=== PATIENT | female | born 1945 | race Caucasian/White ===

== ENCOUNTER → 2017-08-18 | Outpatient (CLI) | payer OTHER | LOC: BMCIMAGING 11:37 | PROVIDERS: ATTEND Family Medicine | DX: S22.32XA Fracture of one rib, left side, initial encounter for closed fracture (principal); K59.00 Constipation, unspecified; C50.919 Malignant neoplasm of unspecified site of unspecified female breast | CPT/HCPCS: 71101-PO ==

== ENCOUNTER → 2017-09-04 | Outpatient (CLI) | payer OTHER | LOC: FIMAGING 13:36 | PROVIDERS: ATTEND Physician Assistant | DX: Z13.820 Encounter for screening for osteoporosis (principal); M81.0 Age-related osteoporosis without current pathological fracture; Z78.0 Asymptomatic menopausal state; Z85.3 Personal history of malignant neoplasm of breast ==

== ENCOUNTER 2018-01-28 10:04 | Day surgery (SDC) | payer OTHER ==
--- NOTE | 2018-01-26 16:33 | GHP ---
[f rep st] PREOP HISTORY AND PHYSICAL DATE OF ADMISSION: 01/28/2018 DATE OF SURGERY: 01/28/2018. HISTORY OF PRESENT ILLNESS: The patient is a very pleasant 72-year-old woman who has a complicated history of breast cancer. She developed a left breast cancer in 2010 and then a subsequent right breast cancer as a 2nd primary in 2014. She underwent bilateral mastectomy [place] [address] Radha Castellanos with sentinel lymph node biopsy. At the time of surgery, she was found to have 2/6 positive right axillary lymph nodes. She developed skin lesions over her bilateral breasts. She is receiving chemotherapy. Her oncologist is Dr. Mary Noriega. She will require a port for chemotherapy. PAST MEDICAL HISTORY: Left breast cancer, right breast cancer, arthritis, depression, osteoporosis. PAST SURGICAL HISTORY: Bilateral mastectomy, left lumpectomy, carpal tunnel surgery, tubal ligation, wisdom teeth extraction. ALLERGIES: Augmentin, nitrofurantoin, sulfa. SOCIAL HISTORY: She is . She is retired. She has a daughter who is very involved in her care. She denies tobacco, alcohol, or recreational drug use. FAMILY HISTORY: Mother with diabetes. Maternal uncle with melanoma. Maternal cousin with leukemia. REVIEW OF SYSTEMS: 10-point review of systems is negative aside from the HPI. PHYSICAL EXAM: GENERAL: Pleasant, well-developed, well-nourished woman in no acute distress, accompanied by daughter. HEENT: Alopecia. Normocephalic, atraumatic. No hearing deficits. Pupils equal and round. No scleral icterus. Mucous membranes moist. RESPIRATORY: Clear to auscultation bilaterally. No increased work of breathing. CARDIOVASCULAR: Regular rate and rhythm. No peripheral edema. SKIN: She has erythematous nodules over her bilateral chest. There are several areas in the right upper outer chest of a larger, more dominant nodular lesion approximately 1 cm. BREASTS: Status post mastectomy with bilateral breast implants. LYMPHATIC: No cervical or supraclavicular axillary lymphadenopathy. Palpable left axillary lymph node. No right axillary adenopathy. PSYCHIATRIC: Mood and affect normal. NEUROLOGIC : Grossly intact. IMPRESSION AND PLAN: A 72-year-old woman with bilateral breast cancer, metastatic, now with metastases to her skin. She will require a port for chemotherapy. We discussed risks of surgery including, but not limited to, heart attack, stroke, blood clots, or . We discussed risk of infection, bleeding, pneumothorax, or need for device removal. If the device becomes infected, it will need to be removed. I suspect that the port will be placed on the left side as she has healthy tissue in the left upper outer chest. We will also perform an excisional skin biopsy of the skin lesion of the right upper outer chest to be sent for Foundation testing and chemosensitivity. I saw and examined the patient. Kate Carey PA-C acted as scribe /[id number]/MODL MTDD
[2018-01-28] MEDS ORDERED: ceFAZolin 2 GM/SWFI 2 GM/20 ML SYR IVP ONE (10:25)
[2018-01-28] MEDS ORDERED: LR 1,000 ML IV ONE (10:26)
--- NOTE | 2018-01-28 11:21 | PDANEPAE ---
ANE History of Present Illness port placement chest bx ANE Past Medical History - Cardiovascular History Hx Hypertension: No Hx Arrhythmias: No Hx Chest Pain: No Hx Coronary Artery / Peripheral Vascular Disease: No Hx CHF / Valvular Disease: No Hx Palpitations: No Cardiovascular History Comment: hyperlipidemia - Pulmonary History Hx COPD: No Hx Asthma/Reactive Airway Disease: No Hx Recent Upper Respiratory Infection: No Hx Oxygen in Use at Home: No Hx Sleep Apnea: No Sleep Apnea Screening Result - Last Documented: Negative Pulmonary History Comment: PNEUMONIA - Neurologic History Hx Cerebrovascular Accident: No Hx Seizures: No Hx Dementia: No - Endocrine History Hx Diabetes: No - Renal History Hx Renal Disorders: No - Liver History Hx Hepatic Disorders: No - Neurological & Psychiatric Hx Hx Neurological and Psychiatric Disorders: No Neurological / Psychiatric History Comment: depression - Cancer History Hx Cancer: Yes Cancer History Comment: breast cancer in 2014. current mets - Congenital Disorder History Hx Congenital Disorders: No - GI History Hx Gastrointestinal Disorders: Yes Gastrointestinal History Comment: constipation - Other Health History Other Health History: wears glasses. currently only wearing left hearing aid d/ t hearing issue. osteoporosis to back - Chronic Pain History Chronic Pain: Yes (back pain) - Surgical History Prior Surgeries: 02/01/15 bilateral mastectomy with reconstruction with [facility]. LT BREAST LUMPECTOMY. LT BREAST BX. TUBAL LIGATION. ANU CARPAL TUNNEL ANE Review of Systems Review of systems is: negative Review of Systems: - Exercise capacity METS (RN): 4 METS ANE Patient History - Allergies Allergies/Adverse Reactions: amoxicillin trihydrate [From Augmentin] Allergy (Verified 01/26/18 16:45) Hives nitrofurantoin [From Macrobid] Allergy (Verified 01/26/18 16:45) Hives nitrofurantoin macrocrystalline [From Macrobid] Allergy (Verified 01/26/18 16:45 ) Hives potassium clavula *RETIRED-07/04/12 [From Augmentin] Allergy (Verified 01/26/18 16:45) Hives sulfamethoxazole [From Bactrim] Allergy (Verified 01/26/18 16:45) Hives trimethoprim [From Bactrim] Allergy (Verified 01/26/18 16:45) Hives - Home Medications Home medications: home medication list seen and reviewed Home Medications: Acyclovir [Zovirax 400 mg (*)] TID 01/31/15 [Last Taken 01/28/18 08:30] Herbals/Supplements -Info Only 01/31/15 [Last Taken 01/26/18] VENLAFAXINE HCL 150 mg PO DAILY 01/26/18 [Last Taken 01/28/18 08:30] - NPO status NPO Since - Liquids (Date): 01/28/18 NPO Since - Liquids (Time): 08:30 NPO Since - Solids (Date): 01/27/18 NPO Since - Solids (Time): 22:00 - Anes Hx Anes Hx: no prior problems - Smoking Hx Smoking Status: Never smoked - Family Anes Hx Family Anes Hx: none Family Hx Anesthesia Complications: none ANE Labs/Vital Signs - Vital Signs Blood Pressure: 119/69 Heart Rate: 70 Respiratory Rate: 16 O2 Sat (%): 97 Height: 147 cm Weight: 44.452 kg ANE Physical Exam - Airway Neck exam: FROM Mallampati Score: Class 2 Mouth exam: normal dental/mouth exam - Pulmonary Pulmonary: no respiratory distress - Cardiovascular Cardiovascular: regular rate and rhythym - ASA Status ASA Status: II ANE Anesthesia Plan Total IV Anesthesia: Yes
--- NOTE | 2018-01-28 11:32 | PDHPUP ---
History & Physical Update H&P update statement: This history and physical update is based on an assessment of the patient which was completed after admission or registration (within 24 hours), but prior to the surgery/procedure. H&P update: H&P reviewed & patient examined, no change in patient's condition since H&P completed
[2018-01-28] MEDS ORDERED: BUPIVACAINE 0.5% 30 ML SDV ONE (11:48)
[2018-01-28] MEDS ORDERED: LIDOCAINE 1% 300 MG/30 ML SDV ONE (11:52)
[2018-01-28] MEDS ORDERED: PROPOFOL/EMULSION 500 MG/50 ML BOTTLE IV ONE (12:01)
[2018-01-28] MEDS ORDERED: LIDOCAINE 2% 100 MG/5 ML SYR ONE (12:01)
[2018-01-28] MEDS ORDERED: ceFAZolin 1 GM VIAL ONE ×2 (12:15)
[2018-01-28] MEDS ORDERED: ONDANSETRON 4 MG/2 ML VIAL IVP PRN (12:39)
[2018-01-28] MEDS ORDERED: NALOXONE HCL 0.4 MG/ML INJ IVP PRN (12:39)
[2018-01-28] MEDS ORDERED: HYDROmorphONE/DILAUDID 1 MG/ML INJ IVP PRN (12:39)
[2018-01-28] MEDS ORDERED: oxyCODONE IR 5 MG TAB PO PRN (12:39)
[2018-01-28] MEDS ORDERED: ACETAMINOPHEN 500 MG TAB PO PRN (12:39)
[2018-01-28] MEDS ORDERED: HYDROCODONE/APAP 5/325 TAB PO PRN (12:39)
[2018-01-28] MEDS ORDERED: DEXAMETHASONE 4 MG/ML VIAL IVP PRN (12:39)
--- NOTE | 2018-01-28 12:44 | POSTANESTH ---
Post Anesthetic Evaluation Cardiovascular Status: Normal, Stable, Similar to Pre-Op Cond Respiratory Status: Normal, Stable, Similar to Pre-op Cond. Level of Consciousness/Mental Status: Can Participate in Eval, Mildly Sleepy, Arousable Pain Control: Adequate, Prn Tx Ordered Nausea/Vomiting Control: Adequate, Prn Tx Ordered Complications Possibly Related to Anesthesia: None Noted
[2018-01-28] MEDS ORDERED: fentaNYL 100 MCG/2 ML INJ ONE ×2 (13:15→13:48)
[2018-01-28] MEDS: fentaNYL 100 MCG/2 ML INJ IVP PRN ×4 (13:17→13:50)
--- NOTE | 2018-01-28 13:24 | POSTOPPROG ---
Post Op Note Date of Operation: 01/28/18 Surgeon: Radha Castellanos Anesthesiologist: wilber Anesthesia: IV Sedation Pre-op Diagnosis: metastatic breast ca Post-op Diagnosis: same Indication: 72yo F s/p B mastectomy with metastatic breast cancer Procedure: L US guided IJ power port placement with bx R chest nodule Findings: nodule skin changes bilateral chest. Inf/Abcess present in the surg proc area at time of surgery?: No EBL: Minimal Specimen(s): skin nodule for foundation testing
[2018-01-28 15:21] VITALS: BP 118/74
--- NOTE | 2018-01-30 16:16 | GOP ---
[f rep st] OPERATIVE REPORT DATE OF OPERATION: 01/28/2018 SURGEON: Radha Castellanos MD ANESTHESIA: Dr. Rosales Ferrera. IV sedation. PREOPERATIVE DIAGNOSIS: Metastatic breast cancer. POSTOPERATIVE DIAGNOSIS: Metastatic breast cancer. PROCEDURE PERFORMED: Left ultrasound-guided internal jugular PowerPort placement with excisional biopsy right chest nodule approximately 2 cm. FINDINGS: Nodules on bilateral chest consistent with breast cancer. SPECIMENS: Skin nodule for Foundation testing. ESTIMATED BLOOD LOSS: Minimal. INDICATIONS: The patient is a 72-year-old woman with breast cancer. She presents for port and for biopsy for Foundation testing. DESCRIPTION OF PROCEDURE: Patient was brought into the operating room, placed supine on the table, and general anesthesia was administered. Her bilateral chest and neck were prepped and draped in the usual sterile fashion. She was placed in the Trendelenburg position. I accessed her left internal jugular vein. Using the ultrasound with dark return of blood flow, I threaded the guidewire and removed the needle. Placement was confirmed with fluoroscopy. I created a pocket to accommodate the port in her left chest. I tunneled the catheter up to the insertion site. I measured the catheter under fluoroscopy. Using the Seldinger technique, I placed a dilator and sheath over the wire. I removed the wire and the dilator. I threaded the catheter through the sheath and peeled away the sheath. Placement was confirmed with fluoroscopy. The port withdrew blood easily and was flushed with heparin. I closed the pocket with 3-0 Vicryl followed by 4-0 Monocryl. Dermabond applied. I excised the nodule on her right chest. Hemostasis was achieved in the cavity. This was closed with 3-0 Prolene and a dressing was applied. She was awakened in the operating room, transferred to PACU in stable condition. /[id number]/MODL MTDD
== END 2018-01-28 15:00 | disposition home or self-care (01) ==
LOC: FSGY 10:04
PROVIDERS: ATTEND Surgery
DX: C44.591 Other specified malignant neoplasm of skin of breast (principal); F32.9 Major depressive disorder, single episode, unspecified; M81.0 Age-related osteoporosis without current pathological fracture; M19.90 Unspecified osteoarthritis, unspecified site; Z98.82 Breast implant status
CPT/HCPCS: C1788; J0690; J1642; J2001; J2704; J3010

== ENCOUNTER → 2018-10-13 | Outpatient (CLI) | payer OTHER | LOC: FIMAGING 13:06 | PROVIDERS: ATTEND Nurse Practitioner | DX: M79.604 Pain in right leg (principal); R22.41 Localized swelling, mass and lump, right lower limb ==

== ENCOUNTER 2018-10-15 21:17 | Emergency (ER) | payer OTHER ==
[2018-10-15] MEDS ORDERED: ACETAMINOPHEN 500 MG TAB PO ONE (22:15)
[2018-10-15] MEDS ORDERED: NS 1,000 ML IV ONE (22:15)
[2018-10-15] MEDS ORDERED: IBUPROFEN 200 MG TAB PO ONE (22:15)
[2018-10-15] MEDS ORDERED: NS 1,300 ML IV ONE (22:18)
--- NOTE | 2018-10-15 22:21 | EDPHY ---
H & P Stated Complaint: FEVER,LOWER BACK PAIN,CHEST PAIN/ANU BREAST CA PT Time Seen by Provider: 10/15/18 21:59 HPI/ROS: HPI The patient presents with fever and generalized malaise for the last 1 day. Yesterday the patient said that she generally felt badly but was able to cope. Today in the afternoon she began to feel worse and developed a fever with T-max of 103 F. This is associated with aching pain of her low back, her "ovaries", a headache which is throbbing. She has taken Advil for the pain without any improvement. She reports diarrhea for the last 2 months ever since she has been on new medication for chemotherapy for her bilateral breast cancer. She has not had a cough, sore throat. She has rhinorrhea frequently and reports new bloody rhinorrhea over the last several days. She has not vomited though her appetite is poor . She had a DVT ultrasound of her right leg because of leg swelling about 1 week ago which was negative. The swelling has improved since then. REVIEW OF SYSTEMS 10 systems were reviewed and negative with the exception of the elements mentioned in the history of present illness. PMHx: Bilateral breast cancer, status post mastectomy, followed by Dr. Mary Noriega, currently taking everolimus and evermestan chemotherapeutic for the last 2 months Soc Hx: Here with her daughter, housed PHYSICAL General Appearance: Alert, no distress Eyes: Pupils equal and round no pallor or injection ENT, Mouth: Mucous membranes dry Chest wall: There is a port in place in her left chest wall with no surrounding erythema, warmth, edema; bilateral chest wall is erythematous nodules throughout her chest which are confluent which are nontender Respiratory: There are no retractions, lungs are clear to auscultation Cardiovascular: Regular rate and rhythm Gastrointestinal: Abdomen is soft and non-tender, no masses, bowel sounds normal Neurological: A&O, moves all extremities Skin: Warm and dry, no rashes Musculoskeletal: Neck is supple non tender Extremities: symmetrical, full range of motion Psychiatric: Patient is oriented X 3, there is no agitation Source: Patient Exam Limitations: No limitations - Personal History Current Tetanus Diphtheria and Acellular Pertussis (TDAP): No - Medical/Surgical History Hx Asthma: No Hx Chronic Respiratory Disease: No Hx Diabetes: No Hx Cardiac Disease: No Hx Renal Disease: No Hx Cirrhosis: No Hx Alcoholism: No Hx HIV/AIDS: No Hx Splenectomy or Spleen Trauma: No Other PMH: carpal tunnel bilat, [facility] [place], ANU MASTECTOMY, ANU BREAST CA - Social History Smoking Status: Never smoked Constitutional: Initial Vital Signs Temperature (C) 38.0 C 10/15/18 21:34 Heart Rate 107 H 10/15/18 21:34 Respiratory Rate 18 10/15/18 21:34 Blood Pressure 111/60 10/15/18 21:34 O2 Sat (%) 93 10/15/18 21:34 O2 Delivery Mode Room Air Allergies/Adverse Reactions: amoxicillin trihydrate [From Augmentin] Allergy (Verified 01/26/18 16:45) Hives nitrofurantoin [From Macrobid] Allergy (Verified 01/26/18 16:45) Hives nitrofurantoin macrocrystalline [From Macrobid] Allergy (Verified 01/26/18 16:45 ) Hives potassium clavula *RETIRED-07/04/12 [From Augmentin] Allergy (Verified 01/26/18 16:45) Hives sulfamethoxazole [From Bactrim] Allergy (Verified 01/26/18 16:45) Hives trimethoprim [From Bactrim] Allergy (Verified 01/26/18 16:45) Hives Home Medications: Medication Instructions Recorded Acyclovir [Zovirax 400 mg (*)] TID 01/31/15 Herbals/Supplements -Info Only 01/31/15 VENLAFAXINE HCL 150 mg PO DAILY 01/26/18 Medical Decision Making - Diagnostics Imaging Results: Imaging Impressions Chest X-Ray 10/15/18 22:18 Impression: 1. Subtle hazy increased interstitial markings right midlung that could represent mild focal area of pneumonitis. 2. Borderline cardiomegaly. CT abdomen pelvis with IV contrast is unremarkable, discussed with Dr. Mary of Radiology. Differential Diagnosis: This is a 73-year-old female with bilateral breast cancer currently being treated with oral chemo therapeutics who presents with fever for the last 1 day with diffuse myalgias. Differential diagnosis includes influenza, pyelonephritis, pneumonia, less likely skin infection. Plan for IV fluids, antipyretics, labs and cultures. Patient received treatment and felt much better. She was observed for about 4 hr in the emergency department total. Labs are unremarkable. She is not neutropenic. Her potassium is slightly low at 2.7. This was repleted orally with repeat potassium of 3.7. When I reassessed her the 1st time she was feeling a bit better but we decided to perform CT scan of abdomen pelvis for ongoing flank pain. This was performed and was unremarkable with no radiographic signs of pyelonephritis, diverticulitis, other infectious source. The patient felt better again on reassessment and was able to walk to the bathroom. She said she is feeling much better. She has no ongoing fever here. I have offered her admission to the hospital for observation which she declines. She has blood cultures and urine culture pending at this point in time. I suspect she may have a viral illness. We will discharge her home. - Data Points Laboratory Results: Laboratory Results 10/15/18 22:00 10/15/18 22:00 10/16/18 10/15/18 10/15/18 00:24 23:44 22:32 WBC RBC Hgb POC Hgb 9.2 gm/dL L gm/dL (12.6-16.3) Hct POC Hct 27 % L % (38-47) MCV MCH MCHC RDW Plt Count MPV Neut % (Auto) Lymph % (Auto) Kidder % (Auto) Eos % (Auto) Baso % (Auto) Nucleat RBC Rel Count Absolute Neuts (auto) Absolute Lymphs (auto) Absolute Monos (auto) Absolute Eos (auto) Absolute Basos (auto) Absolute Nucleated RBC Immature Gran % Immature Gran # RBC/WBC/PLT Morphology Platelet Estimate VBG Lactic Acid POC Sodium 142 mEq/L mEq/L (135-145) Sodium POC Potassium 3.6 mEq/L mEq/L (3.3-5.0) Potassium POC Chloride 105 mEq/L mEq/L (97-110) Chloride Carbon Dioxide Anion Gap POC BUN 5 mg/dL L mg/dL (7-23) BUN Creatinine POC Creatinine 0.6 mg/dL mg/dL (0.6-1.0) Estimated GFR Glucose POC Glucose 120 mg/dL H mg/dL (70-100) Calcium Total Bilirubin AST ALT Alkaline Phosphatase Total Protein Albumin Urine Color YELLOW Urine Appearance CLEAR Urine pH 5.0 (5.0-7.5) Ur Specific [place] 1.009 (1.002-1.030) Urine Protein NEGATIVE (NEGATIVE) Urine Ketones TRACE H (NEGATIVE) Urine Blood NEGATIVE (NEGATIVE) Urine Nitrate NEGATIVE (NEGATIVE) Urine Bilirubin NEGATIVE (NEGATIVE) Urine Urobilinogen NEGATIVE EU EU (0.2-1.0) Ur Leukocyte Esterase NEGATIVE (NEGATIVE) Urine Glucose NEGATIVE (NEGATIVE) Nasal Influenza A PCR NEGATIVE FOR FLU A (NEGATIVE) Nasal Influenza B PCR NEGATIVE FOR FLU B (NEGATIVE) 10/15/18 10/15/18 10/15/18 22:00 22:00 22:00 WBC 3.12 10^3/uL L 10^3/uL (3.80-9.50) RBC 3.28 10^6/uL L 10^6/uL (4.18-5.33) Hgb 10.0 g/dL L g/dL (12.6-16.3) POC Hgb Hct 30.1 % L % (38.0-47.0) POC Hct MCV 91.8 fL fL (81.5-99.8) MCH 30.5 pg pg (27.9-34.1) MCHC 33.2 g/dL g/dL (32.4-36.7) RDW 15.4 % H % (11.5-15.2) Plt Count 147 10^3/uL L 10^3/uL (150-400) MPV 8.6 fL L fL (8.7-11.7) Neut % (Auto) 78.3 % H % (39.3-74.2) Lymph % (Auto) 11.2 % L % (15.0-45.0) Kidder % (Auto) 8.3 % % (4.5-13.0) Eos % (Auto) 1.6 % % (0.6-7.6) Baso % (Auto) 0.3 % % (0.3-1.7) Nucleat RBC Rel Count 0.0 % % (0.0-0.2) Absolute Neuts (auto) 2.44 10^3/uL 10^3/uL (1.70-6.50) Absolute Lymphs (auto) 0.35 10^3/uL L 10^3/uL (1.00-3.00) Absolute Monos (auto) 0.26 10^3/uL L 10^3/uL (0.30-0.80) Absolute Eos (auto) 0.05 10^3/uL 10^3/uL (0.03-0.40) Absolute Basos (auto) 0.01 10^3/uL L 10^3/uL (0.02-0.10) Absolute Nucleated RBC 0.00 10^3/uL 10^3/uL (0-0.01) Immature Gran % 0.3 % % (0.0-1.1) Immature Gran # 0.01 10^3/uL 10^3/uL (0.00-0.10) RBC/WBC/PLT Morphology TNP Platelet Estimate TNP VBG Lactic Acid 0.7 mmol/L mmol/L (0.7-2.1) POC Sodium Sodium 133 mEq/L L mEq/L (135-145) POC Potassium Potassium 2.7 mEq/L L* mEq/L (3.5-5.2) POC Chloride Chloride 104 mEq/L mEq/L (97-110) Carbon Dioxide 26 mEq/l mEq/l (22-31) Anion Gap 3 mEq/L L mEq/L (6-14) POC BUN BUN 9 mg/dL mg/dL (7-23) Creatinine 0.7 mg/dL mg/dL (0.6-1.0) POC Creatinine Estimated GFR > 60 Glucose 101 mg/dL H mg/dL (70-100) POC Glucose Calcium 8.1 mg/dL L mg/dL (8.5-10.4) Total Bilirubin 0.4 mg/dL mg/dL (0.1-1.4) AST 62 IU/L H IU/L (14-46) ALT 39 IU/L IU/L (9-52) Alkaline Phosphatase 133 IU/L H IU/L (38-126) Total Protein 6.1 g/dL L g/dL (6.3-8.2) Albumin 3.4 g/dL L g/dL (3.5-5.0) Urine Color Urine Appearance Urine pH Ur Specific [place] Urine Protein Urine Ketones Urine Blood Urine Nitrate Urine Bilirubin Urine Urobilinogen Ur Leukocyte Esterase Urine Glucose Nasal Influenza A PCR Nasal Influenza B PCR Medications Given: Discontinued Medications Acetaminophen (Tylenol) 1,000 mg PO EDNOW ONE Stop: 10/15/18 22:16 Last Admin: 10/15/18 22:28 Dose: 1,000 mg Sodium Chloride (Ns) 1,000 mls @ 0 mls/hr IV EDNOW ONE; Wide Open PRN Reason: Protocol Stop: 10/15/18 22:16 Last Admin: 10/15/18 22:31 Dose: Not Given Sodium Chloride (Ns) 1,300 mls @ 2,600 mls/hr 30 ml/kg infuse over 30 min ( 1300 ml) IV EDNOW ONE PRN Reason: Protocol Stop: 10/15/18 22:47 Last Admin: 10/15/18 22:29 Dose: 1,300 mls Ibuprofen (Motrin) 400 mg PO EDNOW ONE Stop: 10/15/18 22:16 Last Admin: 10/15/18 22:29 Dose: 400 mg Potassium Chloride (Klor Packets) 40 meq PO EDNOW ONE Stop: 10/15/18 22:43 Last Admin: 10/15/18 22:56 Dose: 40 meq Point of Care Test Results: Chemistry 10/16/18 00:24 POC Sodium 142 mEq/L mEq/L (135-145) POC Potassium 3.6 mEq/L mEq/L (3.3-5.0) POC Chloride 105 mEq/L mEq/L (97-110) POC BUN 5 mg/dL L mg/dL (7-23) POC Creatinine 0.6 mg/dL mg/dL (0.6-1.0) POC Glucose 120 mg/dL H mg/dL (70-100) ISTAT H&H 10/16/18 00:24 POC Hgb 9.2 gm/dL L gm/dL (12.6-16.3) POC Hct 27 % L % (38-47) Departure - Departure Disposition: Home, Routine, Self-Care Clinical Impression: Hypokalemia, Myalgia Fever Qualifiers: Fever type: unspecified Qualified Code(s): R50.9 - Fever, unspecified Condition: Good Instructions: Fever in Adults (ED) Additional Instructions: The cause of your fever is not entirely clear at this point. It could very well be a virus. Your testing today looked relatively normal. We have sent blood and urine cultures and if these returned positive for bacterial growth, we will call you at home. Please make sure to drink plenty of fluids. You can take ibuprofen 400 mg and acetaminophen 650 mg every 6 hr as needed for your fever and body pains. Return to the ER if your worse in any way. Referrals: Amarilis Sanchez MD [Primary Care Provider] - As per Instructions Mary Noriega MD [Medical Doctor] - As per Instructions
[2018-10-15 22:26] LABS: PLATELET COUNT 147 10^3/uL (150-400)
[2018-10-15] MEDS ORDERED: POTASSIUM CL 20 MEQ PKT PO ONE (22:42)
[2018-10-16] MEDS ORDERED: IOPAMIDOL (ISOVUE-300) 100 ML BTL ONE (00:31)
[2018-10-16 01:44] VITALS: BP 98/65
== END 2018-10-16 01:44 | disposition home or self-care (01) ==
DX: E87.6 Hypokalemia (principal); M79.10 Myalgia, unspecified site; E86.9 Volume depletion, unspecified; Z85.3 Personal history of malignant neoplasm of breast; Z90.13 Acquired absence of bilateral breasts and nipples
CPT/HCPCS: 71045; 74177; 96360; 99285; Q9967; 82435-PO; 82565-PO; 82947-PO; 84132-PO; 84295-PO; 84520-PO; 85014-PO

== ENCOUNTER → 2019-03-02 | Outpatient (CLI) | payer OTHER | LOC: FIMAGING 10:24 | PROVIDERS: ATTEND Internal Medicine Hematology & Oncology | DX: Z08 Encounter for follow-up examination after completed treatment for malignant neoplasm (principal); C50.312 Malignant neoplasm of lower-inner quadrant of left female breast; C79.2 Secondary malignant neoplasm of skin | CPT/HCPCS: 78306; A9503 ==